=== PATIENT | female | born 1995 | race Caucasian/White ===

== ENCOUNTER 2017-10-14 23:39 | Inpatient (IN) | payer OTHER ==
[~2017-10-14] VITALS: Ht 177.8 cm; Wt 96.6 kg
[2017-10-15] MEDS ORDERED: PRENATAL 19 TA1 EACH PO (00:33)
== END 2017-10-16 14:11 | disposition home or self-care (01) | DRG 774 ==
LOC: LDR 23:39 → OB/GYN 23:39 → SEC-K 10-15 04:20 → LDR 10-15 07:14 → OB/GYN 10-15 15:47
PROC: 10E0XZZ Delivery of Products of Conception, External Approach (ICD-10-PCS; principal; 2017-10-15)
PROC: 0W8NXZZ Division of Female Perineum, External Approach (ICD-10-PCS; 2017-10-15)
PROC: 4A1HXCZ Monitoring of Products of Conception, Cardiac Rate, External Approach (ICD-10-PCS; 2017-10-15)
DX: O99.824 Streptococcus B carrier state complicating childbirth (principal); O75.3 Other infection during labor; Z3A.38 38 weeks gestation of pregnancy; Z37.0 Single live birth

== ENCOUNTER 2018-12-01 06:35 | Inpatient (IN) | payer OTHER ==
[~2018-12-01] VITALS: Ht 177.8 cm; Wt 105.2 kg
[~2018-12-01 06:35] MED LIST: PRENATAL 19 TA1 EACH PO
[2018-12-01] MEDS ORDERED: GILENYA0.5 MG PO (08:42)
== END 2018-12-03 14:24 | disposition home or self-care (01) | DRG 807 ==
LOC: LDR 06:35 → OB/GYN 06:35
PROVIDERS: ADMIT Obstetrics & Gynecology
PROC: 10E0XZZ Delivery of Products of Conception, External Approach (ICD-10-PCS; principal; 2018-12-01)
PROC: 4A1HXCZ Monitoring of Products of Conception, Cardiac Rate, External Approach (ICD-10-PCS; 2018-12-01)
DX: O80 Encounter for full-term uncomplicated delivery (principal); Z37.0 Single live birth; Z3A.39 39 weeks gestation of pregnancy